=== PATIENT | female | born 1960 | race Caucasian/White ===

== ENCOUNTER → 2016-07-23 | Outpatient (CLI) | payer OTHER ==
[2016-04-07 12:00] VITALS: BP 142/84
[~2016-07-23] MED LIST: CIPR500T94 PO; LISI1TAB5 PO; NEBI5TAB2 PO
--- NOTE | 2016-07-23 12:47 | RAD ---
Indication degenerative joint disease. Shoulder pain. Neck pain. Chronic. AP and lateral views of the cervical spine were obtained as well as an odontoid view. C1 through the upper thoracic spine are identified. There is disc space narrowing at C5-6 and C6-7. Small osteophytes are seen at these levels as well. There is very minimal anterolisthesis of C4 relative to C5. There are facet degenerative changes seen at multiple levels. There is slight wedging involving C5. An acute finding is not apparent. The prevertebral soft tissues appear normal. IMPRESSION: Spondylitic changes. No acute finding seen
== END | disposition home or self-care (01) ==
LOC: DXRADRC 12:16
PROVIDERS: ATTEND Psychiatry & Neurology Neurology
DX: M47.812 Spondylosis without myelopathy or radiculopathy, cervical region (principal); M25.512 Pain in left shoulder; M25.511 Pain in right shoulder
CPT/HCPCS: 72040

== ENCOUNTER → 2017-06-23 | Outpatient (CLI) | payer OTHER ==
[2016-04-07 12:00] VITALS: BP 142/84
--- NOTE | 2017-06-23 15:23 | RAD ---
Bone Densitometry 06/23/2017 History: Postmenopausal screening exam Comparison study: 1 densitometry June 10, 2015. Findings: Bone Densitometry was performed with dual photon absorption of the lumbar spine and proximal femurs. Lumbar Spine: Bone density is 0.863 g/cm2 for L1-L4. T-score is -2.6. (Prior T score -3.0) Left femoral neck bone density: 0.766 g/cm2. T-score is -2.0. (Prior T score -1.9) IMPRESSION: 1. Osteoporosis of the lumbar spine. T score has mildly improved in the interim. 2. Osteopenia of the left femoral neck, grossly similar to comparison study World [employer] Organization definition of osteoporosis and osteopenia for women: normal equals T score at or above -1.0 standard deviations; osteopenia equals T score between -1.0 and -2.5 standard deviations; osteoporosis equals T score at or below -2.5 standard deviations.
== END | disposition home or self-care (01) ==
LOC: DXRAD 13:40
PROVIDERS: ATTEND Nurse Practitioner Family
DX: M81.0 Age-related osteoporosis without current pathological fracture (principal); Z78.0 Asymptomatic menopausal state
CPT/HCPCS: 77080

== ENCOUNTER → 2017-09-28 | Outpatient (CLI) | payer OTHER ==
[2016-04-07 12:00] VITALS: BP 142/84
[2017-09-28 09:50] LABS: ALBUMIN 3.2 g/dL (3.4-5.0); ALBUMIN/GLOBULIN RATIO 0.8 (1.0-1.7); CALCIUM 8.6 mg/dL (8.5-10.1); CREATININE 0.7 mg/dL (0.6-1.0); GFR 85.6; POTASSIUM 4.1 mmol/L (3.5-5.1); TOTAL BILIRUBIN 0.4 mg/dL (0.2-1.0); TOTAL PROTEIN 7.4 g/dL (6.4-8.2)
== END | disposition home or self-care (01) ==
LOC: LAB 08:25
PROVIDERS: ATTEND Internal Medicine Cardiovascular Disease
DX: E78.5 Hyperlipidemia, unspecified (principal); I11.0 Hypertensive heart disease with heart failure; I50.9 Heart failure, unspecified; I25.2 Old myocardial infarction; Z87.891 Personal history of nicotine dependence
CPT/HCPCS: 36415; 80053; 80061

== ENCOUNTER → 2018-01-12 | Outpatient (CLI) | payer OTHER ==
[2016-04-07 12:00] VITALS: BP 142/84
[2018-01-12 08:51] LABS: ALBUMIN 3.7 g/dL (3.4-5.0); ALBUMIN/GLOBULIN RATIO 0.9 (1.0-1.7); CALCIUM 8.9 mg/dL (8.5-10.1); CREATININE 0.6 mg/dL (0.6-1.0); TOTAL BILIRUBIN 0.5 mg/dL (0.2-1.0); TOTAL PROTEIN 7.9 g/dL (6.4-8.2)
[2018-01-12 08:58] LABS: POTASSIUM 4.1 mmol/L (3.5-5.1)
== END | disposition home or self-care (01) ==
LOC: LAB 07:45
PROVIDERS: ATTEND Internal Medicine Cardiovascular Disease
DX: E78.5 Hyperlipidemia, unspecified (principal)
CPT/HCPCS: 36415; 80053; 80061

== ENCOUNTER 2019-05-02 14:10 | Emergency (ER) | payer OTHER ==
[~2019-05-02] VITALS: Ht 162.6 cm; Wt 45.6 kg
[~2019-05-02 14:10] MED LIST changes: +LISI1TAB19 PO; -LISI1TAB5 PO
[2019-05-02 14:18] VITALS: BP 159/64
--- NOTE | 2019-05-02 14:39 | PHYS DOC ---
Past History Past Medical History: CAD, High Cholesterol, Hypertension, MD, Other Past Surgical History: Other Additional Past Surgical Histo: ABD SURGERY Smoking: Cigarettes Alcohol Use: Heavy Drug Use: None Adult General Chief Complaint Chief Complaint: NOSEBLEED HPI HPI Patient is a 59-year-old female presents to the emergency department for evaluation. She states that she has had nose bleeding on and off throughout the week, primarily from her left nostril. She states she had a large bleed this morning which seems to have slowed down at this time. She also states that her right ear started bleeding today. She has had upper respiratory symptoms and is on the last day of an amoxicillin course by her PCP. She denies any pain. She denies any significant shortness of breath. She is a chronic smoker. There are no alleviating or exacerbating factors to her symptoms. She has not otherwise had any problems with easy bleeding. Review of Systems Review of Systems Constitutional: Denies fever or chills [] Eyes: Denies change in visual acuity, redness, or eye pain [] HENT: Denies nasal congestion or sore throat, denies otalgia [] Respiratory: Denies shortness of breath [] Cardiovascular: No additional information not addressed in HPI [] GI: Denies abdominal pain, nausea, vomiting, bloody stools or diarrhea [] : Denies dysuria or hematuria [] Musculoskeletal: Denies back pain or joint pain [] Integument: Denies rash or skin lesions [] Neurologic: Denies headache, focal weakness or sensory changes [] Allergies Allergies Allergies Coded Allergies Type Severity Reaction Last Updated Verified naproxen Adverse Reaction Intermediate 05/02/19 Yes Physical Exam Physical Exam PHYSICAL EXAM: CONSTITUTIONAL: Well developed, well nourished HEAD: normocephalic, atraumatic EENT: PERRL, EOMI. Conjunctivae normal color, sclerae non-icteric; moist mucous membranes. There is a large amount of blood in the external auditory canal on the right, obscuring visualization of the tympanic membrane. There is a large clot in the posterior nasal passages on the left, which, when the patient has coughed that out, reveals somewhat of an excoriated nasal mucosa without any active bleeding at this time. There is no bleeding in the posterior pharynx. NECK: Supple, non-tender; no meningismus. LUNGS: mild scattered wheezes, breathing even and unlabored. Normal air movement. HEART: Regular rate and rhythm, no murmur CHEST: No deformity; non-tender ABDOMEN: The abdomen is soft, and non-tender, no masses or bruits. EXTREM: Normal ROM; no deformity, no calf tenderness. Normal pulses palpable in all extremities. There is no pedal edema. SKIN: No rash; no diaphoresis NEURO: Alert; normal speech and cognition; CN's grossly intact; strength grossly intact without focal deficit. BACK: No CVA TTP. Current Patient Data Vital Signs Vital Signs Date Time Temp Pulse Resp B/P (MAP) Pulse Ox O2 Delivery O2 Flow Rate FiO2 05/02/19 14:18 98.3 85 18 159/64 (95) 98 Room Air Lab Results Laboratory Tests Test 05/02/19 14:32 White Blood Count 9.8 x10^3/uL Red Blood Count 3.01 x10^6/uL Hemoglobin 11.5 g/dL Hematocrit 34.3 % Mean Corpuscular Volume 114 fL Mean Corpuscular Hemoglobin 38 pg Mean Corpuscular Hemoglobin Concent 34 g/dL Red Cell Distribution Width 14.5 % Platelet Count 254 x10^3/uL Neutrophils (%) (Auto) 65 % Lymphocytes (%) (Auto) 28 % Monocytes (%) (Auto) 6 % Eosinophils (%) (Auto) 1 % Basophils (%) (Auto) 1 % Neutrophils # (Auto) 6.3 x10^3uL Lymphocytes # (Auto) 2.8 x10^3/uL Monocytes # (Auto) 0.5 x10^3/uL Eosinophils # (Auto) 0.1 x10^3/uL Basophils # (Auto) 0.0 x10^3/uL Platelet Estimate Pending Prothrombin Time 9.9 SEC Prothromb Time International Ratio 1.0 Activated Partial Thromboplast Time 24 SEC Sodium Level 138 mmol/L Potassium Level 4.0 mmol/L Chloride Level 100 mmol/L Carbon Dioxide Level 28 mmol/L Anion Gap 10 Blood Urea Nitrogen 17 mg/dL Creatinine 0.7 mg/dL Estimated GFR (Cockcroft-Gault) 85.1 Glucose Level 103 mg/dL Calcium Level 8.8 mg/dL EKG EKG [] Radiology/Procedures Radiology/Procedures [] Course & Med Decision Making Course & Med Decision Making Pertinent Labs studies reviewed. (See chart for details) []3:45 PM:Patient remains stable. I discussed test results, the need for close follow-up, and return precautions. The patient's hemoglobin is not significantly different than her prior values. I discussed importance of further close outpatient follow-up. After irrigating the patient's ear canal, there does appears to be some inflammation in the right external auditory canal. Dragon Disclaimer Dragon Disclaimer This electronic medical record was generated, in whole or in part, using a voice recognition dictation system. Departure Departure: Impression: Primary Impression: Epistaxis Additional Impression: Otitis externa Disposition: 01 HOME, SELF-CARE Condition: STABLE Referrals: NAT GILLIS (PCP) Patient Instructions: Nosebleed, Otitis Externa Scripts Ciprofloxacin Hcl/Dexameth (CIPRODEX OTIC SUSPENSION) 7.5 Ml Drops.susp 4 DROP RIGHT EAR QID for -, #7.5 ML Prov: ABBE GARCÍA MD 05/02/19 Problem Qualifiers ABBE GARCÍA MD May 02, 2019 14:39
[2019-05-02 14:54] LABS: BASO % 1 % (0-3); EOS # 0.1 x10^3/uL (0.0-0.7); EOS % 1 % (0-3); HEMATOCRIT 34.3 % (36.0-47.0); HEMOGLOBIN 11.5 g/dL (12.0-15.5); LYMPH # 2.8 x10^3/uL (1.0-4.8); LYMPH % 28 % (24-48); MEAN CORPUSCULAR HEMOGLOBIN 38 pg (25-35); MEAN CORPUSCULAR HGB CONC 34 g/dL (31-37); MEAN CORPUSCULAR VOLUME 114 fL (79-100); MONO # 0.5 x10^3/uL (0.0-1.1); MONO % 6 % (0-9); NEUT # 6.3 x10^3uL (1.8-7.7); NEUT % 65 % (31-73); PLATELET COUNT 254 x10^3/uL (140-400); RED BLOOD COUNT 3.01 x10^6/uL (3.50-5.40); RED CELL DISTRIBUTION WIDTH 14.5 % (11.5-14.5); WHITE BLOOD COUNT 9.8 x10^3/uL (4.0-11.0)
[2019-05-02 15:02] LABS: CALCIUM 8.8 mg/dL (8.5-10.1); CREATININE 0.7 mg/dL (0.6-1.0); GFR 85.1
[2019-05-02] MEDS ORDERED: CIPR7.5D RIGHT EAR (15:51)
[2019-05-02 16:27] LABS: ANISOCYTOSIS SLIGHT; PLT ESTIMATE ADEQUATE (ADEQUATE)
== END 2019-05-02 15:55 | disposition home or self-care (01) ==
LOC: ER 14:10
DX: R04.0 Epistaxis (principal); H60.91 Unspecified otitis externa, right ear; I25.10 Atherosclerotic heart disease of native coronary artery without angina pectoris; E78.00 Pure hypercholesterolemia, unspecified; I10 Essential (primary) hypertension; I25.2 Old myocardial infarction; F17.210 Nicotine dependence, cigarettes, uncomplicated; F10.20 Alcohol dependence, uncomplicated; Y90.9 Presence of alcohol in blood, level not specified
CPT/HCPCS: 36415; 80048; 85025; 85610; 85730; 99283

== ENCOUNTER → 2020-11-11 | Outpatient (CLI) | payer OTHER ==
[~2020-11-11] MED LIST changes: +CIPR7.5D RIGHT EAR; -LISI1TAB19 PO; +LISI1TAB37 PO
--- NOTE | 2020-11-11 12:57 | RAD ---
EXAM: Pelvis and left hip, 2 views; sacrum and coccyx, 3 views. HISTORY: Pain. COMPARISON: 11/03/2020 FINDINGS: Frontal and frog-leg views of the left hip and 3 views of the sacrum and coccyx are obtaine d. There is bone demineralization. This limits evaluation of fine bony detail. There is fixation inst rumentation within the proximal right femur, partially included on the [id number]. There is a righ t iliac stent. The femoral heads are normal in configuration. IMPRESSION: 1. Bone demineralization. This limits avulsion of fine bony detail. There is no acute osseous finding . 2. Partial visualization of fixation instrumentation within the proximal right femur. Electronically signed by: Yoko Wick MD (11/11/2020 12:55 PM) [id number]
--- NOTE | 2020-11-11 12:57 | RAD ---
EXAM: Pelvis and left hip, 2 views; sacrum and coccyx, 3 views. HISTORY: Pain. COMPARISON: 11/03/2020 FINDINGS: Frontal and frog-leg views of the left hip and 3 views of the sacrum and coccyx are obtaine d. There is bone demineralization. This limits evaluation of fine bony detail. There is fixation inst rumentation within the proximal right femur, partially included on the [id number]. There is a righ t iliac stent. The femoral heads are normal in configuration. IMPRESSION: 1. Bone demineralization. This limits avulsion of fine bony detail. There is no acute osseous finding . 2. Partial visualization of fixation instrumentation within the proximal right femur. Electronically signed by: Yoko Wick MD (11/11/2020 12:55 PM) [id number]
== END ==
LOC: RAD 12:31
PROVIDERS: ATTEND Physician Assistant Medical
DX: S32.2XXA Fracture of coccyx, initial encounter for closed fracture (principal); M53.3 Sacrococcygeal disorders, not elsewhere classified; X58.XXXA Exposure to other specified factors, initial encounter; Y93.89 Activity, other specified; Y92.89 Other specified places as the place of occurrence of the external cause; Y99.8 Other external cause status
CPT/HCPCS: 72220; 73502